=== PATIENT | female | born 1960 | race Caucasian/White ===

== ENCOUNTER → 2017-10-31 | Day surgery (SDC) | payer OTHER ==
--- NOTE | 2017-10-31 13:00 | Operative Report ---
Operative/Inv Procedure Report Surgery Date: 10/31/17 Name of Procedure: right renal ESWL: cystocopy right retrograde pyelogram: fluroscopy Pre-Operative Diagnosis: right renal colic with ureter stone manipulated to right kidney for ESWL Post-Operative Diagnosis: same Estimated Blood Loss: scant Surgeon/Automobile Mechanic Radiator: Vince Brock MD Anesthesia: moderate sedation Complications: none Operative/Procedure Note Note: The patient was taken to the operating room placed on the OR table in supine position. Timeout was performed, with the patient awake, in order to confirm correct procedure, laterality, anesthesia, and other pertinent perioperative information. This patient was frog leggedThe patient was frog legged,, draped and prepped in usual surgical fashion. A 22 [place] cystoscope sheath with a 30 angle lens was inserted into the bladder without difficulty. No tumor or stone was seen in the bladder. The right orifice was intubated with a tiger tail catheter. Retrograde pyelogram with fluoroscopy was performed. A 5 mm filling defect was noted to be manipulated into the right renal pelvis. The tiger tail was removed. Brisk efflux of contrast material was noted from the right side. The renal pelvis stone remained visible. The patient was then positioned over the ESWL table cutout overlying the treatment dome. Fluoroscopy, using AP and oblique views, the position of the RIGHT renal stone was optimized, and positioned in the middle of the ESWL crosshairs. The stone was measured to be approximately 5 mm in size. ESWL was initiated at low power, and after 200 shockwaves delivered, noting the patient's tolerance to the shockwaves, the power was increased to maximum. At the end of 2500 shockwaves, fluoroscopy confirms the change in consistency of the stone, indicating shattering of the stone. All sponge needle and instrument count were correct at the end of the case. The patient tolerated the procedures well, and was taken to the recovery room in satisfactory condition. The patient is discharged home with pain medication, and follow-up instructions with in 2-3 weeks' time. Discharge Disposition: PACU CC: Vince Brock MD
== END ==
LOC: EDBD 03:33 → STS 03:33 → EDBD 07:00
DX: N20.0 Calculus of kidney (principal); I10 Essential (primary) hypertension; E11.9 Type 2 diabetes mellitus without complications; Z79.84 Long term (current) use of oral hypoglycemic drugs; J45.909 Unspecified asthma, uncomplicated
CPT/HCPCS: J1100; J2250; J2405